=== PATIENT | female | born 1970 ===

== ENCOUNTER 2017-04-08 13:52 | Emergency (ER) | payer OTHER ==
[2017-04-08 13:56] VITALS: BP 185/98; PULSE 76; RESP 20; TEMP 97.8; O2SAT 100
[2017-04-08 13:57] VITALS: BMI 27.3
--- NOTE | 2017-04-08 14:32 | ED PDOC ---
HPI: Abdomen Time Seen by Provider: 04/08/17 14:17 Chief Complaint (Nursing): GI Problem Chief Complaint (Provider): Abdominal Pain History Per: Patient History/Exam Limitations: no limitations Onset/Duration Of Symptoms: Hrs Current Symptoms Are (Timing): Still Present Additional Complaint(s): Aria Nye is a 46 year old female with a history of UTIs that presents to the ED with a chief complaint of sharp abdominal pain focused in her right lower quadrant and radiates to her right lower back that she had been experiencing for two hours [employer]. Patient states that she experienced similar pain one week ago that resolved with Advil. She reports that her pain came back today with an associated 4 episodes of vomiting and "feeling cold." She states that she has not taken any pain medication and denies any difficulty urinating, vaginal bleeding, dysuria, cough, rash, or fever. LMP: 2 weeks ago (around 03/25/17) Past Medical History Reviewed: Historical Data, Nursing Documentation, Vital Signs Vital Signs: Last Vital Signs Temp 97.8 F 04/08/17 13:55 Pulse 76 04/08/17 13:55 Resp 20 04/08/17 13:55 BP 185/98 H 04/08/17 13:55 Pulse Ox 100 04/08/17 14:38 - Medical History Other PMH: hx of UTIs - Surgical History Other surgeries: ovarian cyst surgery x2 - Family History Family History: States: Unknown Family Hx - Home Medications Home Medications: Ambulatory Orders Medication Instructions Recorded Ciprofloxacin HCl [Cipro] 250 mg PO BID #14 tab 04/08/17 Ketorolac Tromethamine [Toradol] 10 mg PO Q6H PRN #19 tab 04/08/17 Ondansetron [Zofran] 4 mg PO Q8H #9 tab 04/08/17 Tamsulosin [Flomax] 0.4 mg PO DAILY #21 cap 04/08/17 - Allergies Allergies/Adverse Reactions: Allergies Allergy/AdvReac Type Severity Reaction Status Date / Time No Known Allergies Allergy Verified 04/08/17 14:00 Review of Systems Constitutional: Negative for: Fever Respiratory: Negative for: Cough Gastrointestinal: Positive for: Abdominal Pain (sharp pain in RLQ radiates to right lower back) Genitourinary Female: Negative for: Dysuria, Incontinence, Hematuria, Vaginal Discharge, Vaginal Bleeding Skin: Negative for: Rash Physical Exam - Reviewed Nursing Documentation Reviewed: Yes Vital Signs Reviewed: Yes - Physical Exam Appears: Positive for: Non-toxic, No Acute Distress Head Exam: Positive for: ATRAUMATIC, NORMOCEPHALIC Skin: Positive for: Normal Color, Warm Eye Exam: Positive for: Normal appearance, EOMI, PERRL Cardiovascular/Chest: Positive for: Regular Rate, Rhythm. Negative for: Murmur Respiratory: Positive for: Normal Breath Sounds. Negative for: Wheezing Gastrointestinal/Abdominal: Positive for: Bowel Sounds (Normal), Other (Mild pain with palpation of RLQ, patient reports feels better without pressure). Negative for: Rebound Back: Positive for: Normal Inspection. Negative for: L CVA Tenderness, R CVA Tenderness Extremity: Positive for: Normal ROM. Negative for: Tenderness, Swelling Neurologic/Psych: Positive for: Alert, Oriented. Negative for: Motor/Sensory Deficits - ECG O2 Sat by Pulse Oximetry: 100 (RA) Pulse Ox Interpretation: Normal Medical Decision Making Medical Decision Making: Impression: UTI vs. Pyelonephritis vs. Kidney Stone Plan: * CMP * CBC * Urine preg * Urine dip * Pepcid 20 mg IV * Toradol 30 mg iV * Zofran 4 mg IV * NaCl 1000 mLs at 1000 mLs/hr * Reevaluation Scribe Attestation: Documented by Destiney Carlos, acting as a scribe for Catalina Ramírez MD. Provider Scribe Attestation: All medical record entries made by the Scribe were at my direction and personally dictated by me. I have reviewed the chart and agree that the record accurately reflects my personal performance of the history, physical exam, medical decision making, and the department course for this patient. I have also personally directed, reviewed, and agree with the discharge instructions and disposition. 4.20p - patient is feeling better. abdominal series shows 4-5 mm stone as per radiologist. Disposition - Clinical Impression Clinical Impression: Ureteral calculus - Patient ED Disposition Is Patient to be Admitted: No Doctor Will See Patient In The: Office Counseled Patient/Family Regarding: Diagnosis, Need For Followup, Rx Given - Disposition Referrals: Jayson Juarez Jr., MD [Staff Provider] - [facility] [Outside] Jeanette Mccurdy MD [Medical Doctor] - Disposition: Routine/Home Disposition Time: 16:26 Condition: IMPROVED Prescriptions: Ciprofloxacin HCl [Cipro] 250 mg PO BID #14 tab Ketorolac Tromethamine [Toradol] 10 mg PO Q6H PRN #19 tab PRN Reason: Pain, Moderate (4-7) Ondansetron [Zofran] 4 mg PO Q8H #9 tab Tamsulosin [Flomax] 0.4 mg PO DAILY #21 cap Instructions: Ureteral Stones (ED) Forms: [facility] (Turkish) - POA Present On Arrival: None
--- NOTE | 2017-04-08 15:06 | RAD ---
PROCEDURE: Radiographs of the chest and abdomen (obstructive series) HISTORY: right sided pain COMPARISON: No prior. TECHNIQUE: AP radiograph of the chest, with upright and supine radiographs of the abdomen. FINDINGS: CHEST: Lungs: Clear. Cardiovascular: Normal size heart. No pulmonary vascular congestion. Pleura: No pleural fluid. No pneumothorax. Other findings: None. ABDOMEN AND PELVIS: Bowel: Moderate left and right stool retention. No evidence of mechanical obstruction. Free air: None. 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 Bilateral hemipelvic calcifications possibly phleboliths - additional distally ureteral calculi not entirely excluded. IMPRESSION: No bowel obstruction or free air. No pulmonary infiltrate 4 to 5 mm mid right ureteral calculus suspect. Findings conveyed to Dr Ramírez in the emergency room on 04/08/2017 at 3:05 p.m.
[2017-04-08] MEDS: Sodium Chloride 0.9% 1,000 ML IV STA (15:54)
[2017-04-08 16:21] LABS: BASO % 0.3 % (0.0-2.0); EOS # 0.1 K/uL (0.0-0.7); EOS % 0.5 % (0.0-4.0); HEMATOCRIT 40.7 % (34.0-47.0); LYMPH # 0.9 K/uL (1.0-4.3); LYMPH % 9.8 % (20.0-40.0); MEAN CELL VOLUME 91.3 fl (81.0-99.0); MEAN CORPUSCULAR HEMOGLOBIN 29.8 pg (27.0-31.0); MEAN CORPUSCULAR HGB CONC 32.6 g/dL (33.0-37.0); MEAN PLATELET VOLUME 8.4 fl (7.2-11.7); MONO # 0.3 K/uL (0.0-0.8); MONO % 3.6 % (0.0-10.0); NEUT # 8.3 K/uL (1.8-7.0); NEUT % 85.8 % (50.0-75.0); PLATELET COUNT 230 K/uL (130-400); RED CELL DISTRIBUTION WIDTH 13.7 % (11.5-14.5); WHITE BLOOD COUNT 9.6 K/uL (4.8-10.8)
[2017-04-08 16:39] LABS: ALKALINE PHOSPHATASE 87 U/L (38-126); ALT/SGPT 38 U/L (9-52); AST/SGOT 28 U/L (14-36); BILIRUBIN,TOTAL 0.4 mg/dl (0.2-1.3); BLOOD UREA NITROGEN 9 mg/dl (7-17); CALCIUM 9.3 mg/dL (8.4-10.2); CARBON DIOXIDE 24 mmol/L (22-30); CHLORIDE 104 mmol/L (98-107); GFR AFRICAN-AMERICAN > 60; GLUCOSE,RANDOM 103 mg/dL (65-105); LIPASE 189 U/L (23-300); POTASSIUM 3.9 MMOL/L (3.6-5.0); SODIUM 140 mmol/l (132-148); TOTAL PROTEIN 8.6 G/DL (6.3-8.2)
[2017-04-08 16:44] LABS: ALB/GLOB RATIO 1.2 (1.0-2.1)
[2017-04-08 17:26] LABS: BASOPHIL 1 % (0-2); EOSINOPHIL 1 % (0-7); NEUTROPHIL 82 % (42-75); TOTAL CELLS COUNTED 100
== END 2017-04-08 17:12 | disposition home or self-care (01) ==
LOC: H.ER 13:52
DX: N20.1 Calculus of ureter (principal)
CPT/HCPCS: 74022; 80053; 81025; 83690; 85025; 96374; 96375; 99283; J1885; J2405; J7040